=== PATIENT | male | born 1985 | race Caucasian/White ===

== ENCOUNTER 2017-11-19 15:40 | Emergency (ER) | payer SELFPAY ==
[~2017-11-19] VITALS: Ht 165.1 cm; Wt 62.6 kg
[2017-11-19 15:45] VITALS: BP_SYST 146
--- NOTE | 2017-11-19 17:05 | NUR ---
ER SNUFF BLENDER Maryanne examining patient in triage.
[2017-11-19] MEDS ORDERED: IBUPROFEN 800 MG TABLET PO ONE (17:15)
[2017-11-19] MEDS ORDERED: LIDOCAINE/EPI 1% 1:100000 20 ML VIAL INJ ONE (17:15)
[2017-11-19] MEDS ORDERED: BACITRACIN 1 GM OINT TP ONE (17:15)
[2017-11-19] MEDS ORDERED: DIPH-TET-PERTUS Vaccine 0.5 ML VIAL (ADACEL) I.M. ONE ×2 (17:15→19:23)
--- NOTE | 2017-11-19 18:57 | NUR ---
Pt placed in bed 7
--- NOTE | 2017-11-19 19:10 | NUR ---
Patient ambulatory to ED accompanied by self with c/o 3cm laceration to scalp after being cut with branch. Patient reports injury occured while walking. Denies KO. Edges well approximated. Bleeding minimal at this time. No evidence of foreign body to site. Afebrile
--- NOTE | 2017-11-19 19:28 | NUR ---
ED STRE[facility] COMMISSIONER Jones at bedside for medical evaluation.
--- NOTE | 2017-11-19 19:30 | NUR ---
Patient has a 3 cm laceration to scalp. CHARANJIT Jones applied neymar using sterile technique. Edges well approximated. Site cleansed with normal saline. Dressing applied to site. No bleeding noted. Pt tolerated well.
[2017-11-19 19:45] VITALS: BP_SYST 151
--- NOTE | 2017-11-19 19:45 | NUR ---
Patient given written and verbal discharge instructions and verbalizes understanding. ER MD discussed with patient the results and treatment provided. Patient in stable condition. ID arm band removed. Rx of Motrin and bacitracin given. Patient educated on pain management and to follow up with PMD. Pain Scale 2/10 tolerable for patient. Opportunity for questions provided and answered. Medication side effect fact sheet provided.
== END 2017-11-19 19:45 | disposition home or self-care (01) ==
LOC: SED 15:40
DX: S01.01XA Laceration without foreign body of scalp, initial encounter (principal); W22.8XXA Striking against or struck by other objects, initial encounter; Y93.01 Activity, walking, marching and hiking; Y92.89 Other specified places as the place of occurrence of the external cause; Y99.8 Other external cause status
CPT/HCPCS: 90715; 99283